=== PATIENT | female | born 1995 | race Caucasian/White ===

== ENCOUNTER 2018-06-27 17:30 | Emergency (ER) | payer OTHER ==
--- NOTE | 2018-06-27 18:09 | EDPHY ---
H & P Smoking Status: Never smoked Time Seen by Provider: 06/27/18 18:07 HPI/ROS: CHIEF COMPLAINT: Headache and right shoulder pain after fall HISTORY OF PRESENT ILLNESS: Patient is a 22-year-old female with no significant past medical history who is brought here by her friends after she fell riding her skateboard and hit her head and had loss of consciousness. Friend reports that she was going fast and lost control and fell and hit her head and tumbled multiple times. States she is uncertain exactly how long she lost consciousness but she saw no evidence of cyanosis. When she was arousable she did not recall the event and was perseverating. She also reports right clavicle pain. She denies any drug or alcohol use. She denies . REVIEW OF SYSTEMS: Constitutional: No fever, no chills. Eyes: No discharge. ENT: No sore throat. Cardiovascular: No chest pain, no palpitations. Respiratory: No cough, no shortness of breath. Gastrointestinal: No abdominal pain, no vomiting. Genitourinary: No hematuria. Musculoskeletal: No back pain. Skin: No rashes. Neurological: + headache. (Mihai Coates) Physical Exam: General Appearance: Alert and no distress. Alert and oriented to person place and time ENT: normal dentition. No tonsillar exudate or swelling. No Bravo signs, raccoon eyes, hemotympanum. No scalp hematoma Eyes: Pupils equal and round no injection. Extraocular muscles intact. No facial deformity. Normal dental alignment. Respiratory: Chest is nontender, lungs are clear to auscultation. Cardiac: regular rate and rhythm. No lower extremity edema Gastrointestinal: Abdomen is soft and nontender, no masses, bowel sounds normal. Musculoskeletal: Neck is supple and nontender. Extremities tenderness to the right clavicle. No tenderness to the right humerus or elbow. Neurovascular intact in the right upper extremity distal to the shoulder. No skin tenting over the right clavicle. Skin: No rashes or lesions. Neuro: Cranial nerves grossly intact. No nystagmus. Normal [id number] testing. Equal grasp bilateral hands. Ambulatory. (Mihai Coates) Constitutional: Initial Vital Signs Heart Rate 91 06/27/18 17:44 Respiratory Rate 18 06/27/18 17:44 Blood Pressure 113/85 H 06/27/18 17:44 O2 Sat (%) 98 06/27/18 17:44 O2 Delivery Mode Room Air Allergies/Adverse Reactions: azithromycin Allergy (Verified 06/27/18 17:47) Home Medications: Medication Instructions Recorded Ondansetron Odt [Zofran Odt] 4 mg PO Q4PRN PRN #20 tab 06/27/18 oxyCODONE/APAP 5/325 [Percocet 1 - 2 tab PO Q6-8PRN PRN #20 tab 06/27/18 5/325 (RX)] Medical Decision Making - Diagnostics Imaging Results: Imaging Impressions Clavicle X-Ray 06/27/18 18:09 Impression: 1. Displaced butterfly type fracture midshaft right clavicle. Chest X-Ray 06/27/18 18:23 Impression: 1. Fracture right mid clavicle. Head CT 06/27/18 18:23 Impression: Several acute petechial hemorrhages bilateral temporal lobes, left greater than right. Findings and recommendations discussed with Emergency Department physician, Mihai Coates at 1950 hour, 06/27/2018. Final report concurs with initial preliminary interpretation. Cervical Spine CT 06/27/18 18:24 Impression: 1. Comminuted displaced right mid clavicle fracture. 2. No definite cervical spine fracture. 3. If there is persistent pain or neurological deficit, recommend MR cervical spine and consider flexion and extension views, if clinically indicated. Findings and recommendations discussed with Emergency Department physician, Mihai Coates PA-C at 1950 hour, 06/27/2018. Final report concurs with initial preliminary interpretation. ED Course/Re-evaluation: Independent physician evaluation I evaluated and participated in the management of the patient. I also evaluated the patient independently. My co-signature indicates that I have reviewed this chart and I agree with the findings and plan of care as documented. My personal H&P findings include: The patient presents the emergency department after skateboarding accident earlier today which resulted in a closed head injury in clavicle fracture. The patient did have a loss of consciousness she did have some repetitive questioning upon arrival. She is not anticoagulated. Her primary complaint in the emergency department is right clavicle pain. Physical exam: General Appearance: Alert, no distress Head: Atraumatic Eyes: Pupils equal, round, reactive ENT, Mouth: No hemotympanum, no oral trauma Neck: Nontender, trachea midline Respiratory: Tenderness to palpation over the right clavicle, no subcutaneous emphysema, lungs clear to auscultation bilaterally Cardiovascular: Regular rate and rhythm Abdomen: Abdomen is soft and nontender, pelvis stable Skin: No lacerations, No abrasion Back: No midline T/L/S pain Extremities: Nontender, full range of motion Neurological: A&Ox3, normal motor function, normal sensory exam ED course: Patient was noted to have a right clavicle fracture. She was placed in a sling. Given her mechanism of injury a CT scan of the head was obtained which demonstrated small areas of punctate petechial hemorrhage. Initially the plan was to admit the patient given her intracranial hemorrhage. As I evaluate the patient at 10:00 p.m. She is laughing and texting on her phone. Her GCS is 15. I consulted with Dr. Reyna from Neurosurgery who reviewed the patient's CT scan remotely. He feels that the patient is at low risk for progression of intracranial hemorrhage and can be discharged home provided she can be closely observed. The patient is accompanied by 5 of her friends to feel quite comfortable checking her on an hourly basis throughout the night. I do not feel that the patient needs to be transferred to the [facility] for ICU level care. The patient was observed in the emergency department for 4 hr without any deterioration of her mental status. Patient will be given follow up with Orthopedic surgery regarding her clavicle fracture. She will be discharged home with a prescription for Percocet. (Poncho Davidson) Please see ED course from Dr. Poncho Davidson. I agree with his ED course, assessment and plan as stated above. (Mihai Coates) - Data Points Laboratory Results: Laboratory Results 06/27/18 20:25 06/27/18 20:25 06/27/18 06/27/18 06/27/18 20:25 20:25 20:25 WBC 16.39 10^3/uL H 10^3/uL (3.80-9.50) RBC 4.25 10^6/uL 10^6/uL (4.18-5.33) Hgb 13.4 g/dL g/dL (12.6-16.3) Hct 37.6 % L % (38.0-47.0) MCV 88.5 fL fL (81.5-99.8) MCH 31.5 pg pg (27.9-34.1) MCHC 35.6 g/dL g/dL (32.4-36.7) RDW 12.9 % % (11.5-15.2) Plt Count 296 10^3/uL 10^3/uL (150-400) Sodium 134 mEq/L L mEq/L (135-145) Potassium 3.8 mEq/L mEq/L (3.5-5.2) Chloride 102 mEq/L mEq/L (97-110) Carbon Dioxide 24 mEq/l mEq/l (22-31) Anion Gap 8 mEq/L mEq/L (6-14) BUN 18 mg/dL mg/dL (7-23) Creatinine 0.8 mg/dL mg/dL (0.6-1.0) Estimated GFR > 60 Glucose 95 mg/dL mg/dL (70-100) Calcium 9.8 mg/dL mg/dL (8.5-10.4) Beta HCG, Qual NEGATIVE Medications Given: Discontinued Medications Hydrocodone Bitart/Acetaminophen ([place] 5/325) 1 tab PO EDNOW ONE Stop: 06/27/18 18:57 Last Admin: 06/27/18 19:00 Dose: 1 tab Sodium Chloride (Ns) 1,000 mls @ 0 mls/hr IV ONCE ONE PRN Reason: Wide Open Stop: 06/27/18 21:11 Last Admin: 06/27/18 21:14 Dose: 1,000 mls Ibuprofen (Motrin) 600 mg PO EDNOW ONE Stop: 06/27/18 18:12 Last Admin: 06/27/18 18:13 Dose: 600 mg Morphine Sulfate (Morphine) 2 mg IVP EDNOW ONE Stop: 06/27/18 21:10 Last Admin: 06/27/18 21:15 Dose: 2 mg Ondansetron HCl (Zofran) 4 mg IVP EDNOW ONE Stop: 06/27/18 21:09 Last Admin: 06/27/18 21:15 Dose: 4 mg Ondansetron HCl (Zofran Odt 4 Mg Prepack#2) 1 btl TAKEHOME EDNOW ONE Stop: 06/27/18 21:52 Last Admin: 06/27/18 22:25 Dose: 1 btl Oxycodone/Acetaminophen (Percocet 5/325mg Prepack#4) 1 btl MYRIAM CABALLERO ONE Stop: 06/27/18 21:52 Last Admin: 06/27/18 22:26 Dose: 1 btl Departure - Departure Disposition: Home, Routine, Self-Care Clinical Impression: Closed petechial hemorrhage of brain Qualifiers: Encounter type: initial encounter Clavicle fracture Qualifiers: Encounter type: initial encounter Condition: Fair Instructions: Clavicle Fracture (ED) Additional Instructions: 1. Percocet as needed for pain 2. Zofran as needed for nausea 3. Please return to the ED immediately for any worsening headache, vomiting or other concerns. 4. Please schedule a follow-up appointment with Dr. Hyatt from Orthopedic surgery regarding a clavicle fracture. 5. Please schedule a follow-up with Dr. Reyna's office for a recheck of your head injury. Referrals: Jerri Hyatt MD [Medical Doctor] - As per Instructions Franklin Reyna MD [Medical Doctor] - As per Instructions Stand Alone Forms: School Excuse Prescriptions: Ondansetron Odt [Zofran Odt] 4 mg PO Q4PRN PRN #20 tab PRN Reason: For Nausea oxyCODONE/APAP 5/325 [Percocet 5/325 (RX)] 1 - 2 tab PO Q6-8PRN PRN #20 tab PRN Reason: for pain
[2018-06-27] MEDS ORDERED: IBUPROFEN 600 MG TAB PO ONE (18:11)
[2018-06-27] MEDS ORDERED: HYDROCODONE/APAP 5/325 TAB ONE (18:56)
[2018-06-27] MEDS ORDERED: HYDROCODONE/APAP 5/325 TAB PO ONE (18:56)
[2018-06-27] MEDS ORDERED: ONDANSETRON 4 MG/2 ML VIAL IVP ONE (21:08)
[2018-06-27] MEDS ORDERED: NS 1,000 ML IV ONE (21:10)
[2018-06-27 21:43] VITALS: BP 108/74
[2018-06-27] MEDS ORDERED: ONDANSETRON 4MG PREPACK#2 BTL TAKEHOME ONE (21:51)
[2018-06-27] MEDS ORDERED: OXYCODONE/APAP 5/325MG PREPACK#4 BTL TAKEHOME ONE (21:51)
== END 2018-06-27 22:29 | disposition home or self-care (01) ==
DX: S06.2X9A Diffuse traumatic brain injury with loss of consciousness of unspecified duration, initial encounter (principal); M25.511 Pain in right shoulder; V00.131A Fall from skateboard, initial encounter; Y92.9 Unspecified place or not applicable; Y93.51 Activity, roller skating (inline) and skateboarding; Y99.9 Unspecified external cause status
CPT/HCPCS: 96374; J2270; J2405